=== PATIENT | female | born 1960 | race Caucasian/White ===

== ENCOUNTER → 2016-11-01 10:42 | Outpatient (CLI) | payer MEDICARE | END | disposition home or self-care (01) | LOC: D.MRI 10-25 13:00 | DX: G61.89 Other inflammatory polyneuropathies (principal) ==

== ENCOUNTER 2019-04-20 10:16 | Emergency (ER) | payer MEDICARE ==
[~2019-04-20] VITALS: Ht 162.6 cm; Wt 92.7 kg
[2019-04-20 10:17] VITALS: Ht 162.6 cm; Wt 92.7 kg
[2019-04-20] MEDS ORDERED: COZAAR50 MG PO (10:22)
[2019-04-20] MEDS ORDERED: SYNTHROID100 MCG PO (10:22)
[2019-04-20] MEDS ORDERED: AMITRIPTYLINE H50 MG PO (10:23)
[2019-04-20] MEDS ORDERED: ZANAFLEX4 MG PO (10:23)
[2019-04-20] MEDS ORDERED: REQUIP5 MG PO (10:23)
[2019-04-20] MEDS ORDERED: PROZAC40 MG PO (10:24)
[2019-04-20 11:02] LABS: EOSINOPHILS 3.5 % (0-7); HEMOGLOBIN 14.1 g/dL (12-16); IMMATURE GRANULOCYTES 0.4 % (0-5); LYMPHOCYTES 22.5 % (15-50); MCHC 34.4 g/dL (31.0-37.0); MCV 98.8 fL (80.0-100.0); MEAN PLATELET VOLUME 10.2 fL (7.4-10.4); MONOCYTES 7.4 % (2-11); NEUTROPHILS 65.2 % (40-80); PLATELET COUNT 266 10x3/uL (130-400); RBC 4.15 10x6/uL (4.00-5.40); WBC 10.5 10x3/uL (4.8-10.8)
[2019-04-20 11:08] LABS: UDS - AMPHET NEGATIVE QUAL (NEGATIVE); UDS - BARB NEGATIVE QUAL (NEGATIVE); UDS - BENZO NEGATIVE QUAL (NEGATIVE); UDS - COCAINE NEGATIVE QUAL (NEGATIVE); UDS - OPIATE NEGATIVE QUAL (NEGATIVE); UDS - PCP NEGATIVE QUAL (NEGATIVE); UDS - THC NEGATIVE QUAL (NEGATIVE)
[2019-04-20 11:21] LABS: ALBUMIN 4.1 g/dL (3.4-5.0); ALKALINE PHOSPHATASE 148 U/L (46-116); ALT (SGPT) 41 U/L (10-68); BILIRUBIN - TOTAL 0.27 mg/dL (0.2-1.3); CALC OSMOLALITY 283 mosm/kg (275-300); CALCIUM 9.4 mg/dL (8.5-10.1); CARBON DIOXIDE 22.9 mmol/L (21.0-32.0); CHLORIDE - SERUM 106 mmol/L (98-107); CREATININE - SERUM 1.1 mg/dL (0.6-1.3); GLUCOSE 80 mg/dL (74-106); PROTEIN - SERUM 7.8 g/dL (6.4-8.2); SODIUM 142 mmol/L (136-145); UREA NITROGEN 19 mg/dL (7-18); eGFR NON AFRICAN AMERICAN 54 mL/min (90-120)
[2019-04-20 11:34] LABS: CKMB 2.8 U/L (0.0-3.6); CREATINE KINASE 113 UL (21-215); MAGNESIUM - SERUM 1.8 mg/dL (1.8-2.4); TROPONIN-I < 0.017 ng/mL (0.000-0.060)
[2019-04-20 12:11] LABS: APPEARANCE CLOUDY (CLEAR); COLOR YELLOW (YELLOW); SPECIFIC GRAVITY 1.015 (1.005-1.020)
[2019-04-20 12:12] LABS: BACTERIA MANY /hpf (NONE SEEN); BILIRUBIN NEGATIVE (NEGATIVE); GLUCOSE NEGATIVE (NEGATIVE); KETONE NEGATIVE (NEGATIVE); MUCUS <1+ /lpf (NONE SEEN); NITRITE POSITIVE (NEGATIVE); PROTEIN 1+ mg/dL (NEGATIVE); RED CELLS - URINE RARE /hpf (0-5); UROBILINOGEN NORMAL (NORMAL)
[2019-04-20] MEDS ORDERED: LEVOFLOXACIN500 MG PO (12:48)
[2019-04-20 13:22] VITALS: BP 101/52
== END 2019-04-20 13:30 | disposition home or self-care (01) ==
LOC: D.ER 10:16
PROVIDERS: Family Medicine
DX: N39.0 Urinary tract infection, site not specified (principal); E87.6 Hypokalemia; R55 Syncope and collapse